=== PATIENT | male | born 1985 | race Caucasian/White ===

== ENCOUNTER 2018-09-28 13:52 | Emergency (ER) | payer BC ==
[2018-09-28 13:58] VITALS: BP 141/82; PULSE 69; RESP 18; TEMP 98.1
--- NOTE | 2018-09-28 15:24 | ED ---
Eye Problem HPI - General Chief complaint: Eye Problems Stated complaint: Eye Pain Time Seen by Provider: 09/28/18 14:18 Source: patient Mode of arrival: ambulatory Limitations: no limitations - History of Present Illness Initial comments: 33-year-old male presenting today for chief complaint of right eye pain. Patient states that he has had a red eye since Wednesday, he states he was evaluated by maria esther Cowan told that he had possible uveitis. Patient was started on antibiotic drops and told to follow-up ophthalmology. Patient missed ophthalmology appointment and presents emergency department for evaluation. Patient states he is sensitive to light. He states the redness has been the inciting. Patient denies any nausea or vomiting. Denies any headache denies any dizziness. Patient denies diplopia or visual loss. Patient denies any crusting or draining of the eye aside from watering 1 exposed to light. Patient denies any rashes or joint pain dyspnea or coughing. Remaining review of systems negative. - Related Data Previous Rx's Medication Instructions Recorded Prednisolone Acetate/Pf 1 drop LEFT EYE QID 5 Days #1 09/28/18 [Prednisolone Acet 1% Eye Drop] bottle Allergies Allergy/AdvReac Type Severity Reaction Status Date / Time No Known Allergies Allergy Verified 09/28/18 13:58 Review of Systems ROS Statement: Those systems with pertinent positive or pertinent negative responses have been documented in the HPI. ROS Other: All systems not noted in ROS Statement are negative. Past Medical History Past Medical History: No Reported History History of Any Multi-Drug Resistant Organisms: None Reported Additional Past Surgical History / Comment(s): jaw Past Psychological History: No Psychological Hx Reported Smoking Status: Never smoker Past Alcohol Use History: None Reported Past Drug Use History: None Reported General Exam - General Exam Comments Initial Comments: General: The patient is awake and alert, in no distress, and does not appear acutely ill. Eye: Visual acuity 20/20 OS, 20/25 OD. +3 mm pupils are equal, round and reactive to light, extra-ocular movements are intact. No APD. No nystagmus. There is undetectable injection near the limbus of the right eye. No conjunctival injection of the left eye. No cell and flare on slit lamp examination. Uptake on fluorescein examination. No foreign body. No signs of icterus. Ears, nose, mouth and throat: There are moist mucous membranes and no oral lesions. Neck: The neck is supple, there is no tenderness or JVD. Cardiovascular: There is a regular rate and rhythm. No murmur, rub or gallop is appreciated. Respiratory: Lungs are clear to auscultation, respirations are non-labored, breath sounds are equal. No wheezes, stridor, rales, or rhonchi. Gastrointestinal: Soft, non-distended, non-tender abdomen without masses or organomegaly noted. There is no rebound or guarding present. No CVA tenderness. Bowel sounds are unremarkable. Musculoskeletal: Normal ROM, no tenderness. Strength 5/5. Sensation intact. Pulses equal bilaterally 2+. Neurological: A&O x 3. CN II-XII intact, There are no obvious motor or sensory deficits. Coordination appears grossly intact. Speech is normal. Skin: Skin is warm and dry and no rashes or lesions are noted. Psychiatric: Cooperative, appropriate mood & affect, normal judgment. Limitations: no limitations Course Vital Signs 09/28/18 09/28/18 13:55 15:33 Temperature 98.1 F 98.1 F Pulse Rate 69 69 Respiratory 18 18 Rate Blood Pressure 141/82 141/82 O2 Sat by Pulse 99 99 Oximetry Medical Decision Making - Medical Decision Making 33-year-old male presenting for evaluation of red right eye. Patient is photophobic on examination. Normal pupil size. No cell and flare. No fluore scein uptake. 2024 OD, 2019 left. I contacted ophthalmology speaking with Dr. scott fajardo who recommended follow-up at 8 AM tomorrow morning. He recommended start patient on steroid drops. Patient states redness is improved since Wednesday. Patient appears well there is no signs of systemic infection. Lungs clear. At this time feel patient stay for discharge with outpatient ophthalmology and primary care follow-up for further evaluation of suspected iritis. I discussed case with [facility] provider Dr. Mcguire who is agreeable care plan and discharged. Return parameters were discussed at length with patient who verbalized understanding. Disposition Clinical Impression: Iritis Disposition: HOME SELF-CARE Condition: Good Instructions (If sedation given, give patient instructions): Iritis (ED) Additional Instructions: Please use medication as discussed. Please follow-up with ophthalmology at 8 AM tomorrow as discussed, please do not missed this appointment as it is important for close follow-up. Address is [address] [place] [address]. Please return to emergency room if the symptoms increase or worsen or for any other concerns. Prescriptions: Prednisolone Acetate/Pf [Prednisolone Acet 1% Eye Drop] 1 drop LEFT EYE QID 5 Days #1 bottle Is patient prescribed a controlled substance at d/c from ED?: No Referrals: None,Stated [Primary Care Provider] - 1-2 days Luh Lopez MD [STAFF PHYSICIAN] - 1-2 days Time of Disposition: 15:23
== END 2018-09-28 15:33 | disposition home or self-care (01) ==
LOC: EC 13:52
DX: H20.9 Unspecified iridocyclitis (principal); Z98.890 Other specified postprocedural states
CPT/HCPCS: 99283

== ENCOUNTER 2018-12-30 22:12 | Emergency (ER) | payer BC ==
[2018-12-30] MEDS ORDERED: SODIUM CHLORIDE 0.9% 1,000 ML IV STA (23:14)
[2018-12-30] MEDS ORDERED: ONDANSETRON 4 MG/2 ML VIAL IVP STA (23:14)
[2018-12-30] MEDS ORDERED: MORPHINE SULFATE 2 MG/ML SYRINGE IVP STA (23:14)
[2018-12-30 23:46] LABS: Basophils % (A) 0 %; Eosinophils # (A) 0.1 k/uL (0-0.7); Eosinophils % (A) 1 %; HGB 13.6 gm/dL (13.0-17.5); Lymphocytes # (A) 0.7 k/uL (1.0-4.8); Lymphocytes % (A) 7 %; MCH 29.4 pg (25.0-35.0); Mean Platelet Volume 7.4; Monocytes # (A) 0.5 k/uL (0-1.0); Monocytes % (A) 6 %; Neutrophils # (A) 7.9 k/uL (1.3-7.7); Neutrophils % (A) 85 %; Platelet Count 178 k/uL (150-450); RBC 4.61 m/uL (4.30-5.90); RDW 12.9 % (11.5-15.5); WBC 9.3 k/uL (3.8-10.6)
[2018-12-30 23:56] LABS: ALT 61 U/L (21-72); AST 70 U/L (17-59); African American GFR (CKD) >90 (>60 ml/min/1.73 sqM); Albumin 3.9 g/dL (3.5-5.0); Alkaline Phosphatase 97 U/L (38-126); Amylase 38 U/L (30-110); Anion Gap 10 mmol/L; Blood Urea Nitrogen 22 mg/dL (9-20); Calcium 8.4 mg/dL (8.4-10.2); Carbon Dioxide 24 mmol/L (22-30); Chloride 104 mmol/L (98-107); Glucose 84 mg/dL (74-99); Potassium 3.6 mmol/L (3.5-5.1); Sodium 138 mmol/L (137-145); Total Bilirubin 1.1 mg/dL (0.2-1.3); Total Protein 6.4 g/dL (6.3-8.2)
--- NOTE | 2018-12-31 00:20 | XR ---
EXAM: XR Abdomen, 1 View CLINICAL HISTORY: ITS.REASON XR Reason: abdominal pain TECHNIQUE: Frontal upright view of the abdomen/pelvis. COMPARISON: 06/17/14. FINDINGS: Gastrointestinal tract: Several air-fluid levels, can be seen with enteritis or ileus. Bones/joints: No visualized acute fracture. Vasculature: Pelvic calcific opacities again noted, potentially phleboliths with other etiologies not excluded. IMPRESSION: 1. Several air-fluid levels, can be seen with enteritis or ileus. 2. Pelvic calcific opacities again noted, potentially phleboliths with other etiologies not excluded.
[2018-12-31 00:37] VITALS: TEMP 98
[2018-12-31 00:49] LABS: Appearance,Urine Clear (Clear); Bilirubin,Urine Negative (Negative); Blood,Urine Negative (Negative); Color,Urine Light Yellow; Glucose,Urine (UA) Negative (Negative); Ketones,Urine 1+ (Negative); Leukocyte Esterase,Urine Negative (Negative); Nitrite,Urine Negative (Negative); PH, Urine 5.5 (5.0-8.0); Protein,Urine Negative (Negative); Specific Gravity,Urine 1.004 (1.001-1.035); Urobilinogen,Urine <2.0 mg/dL (<2.0)
--- NOTE | 2018-12-31 01:11 | ED ---
Abdominal Pain HPI - General Chief Complaint: Abdominal Pain Stated Complaint: Abdominal Pain Time Seen by Provider: 12/30/18 22:39 Source: patient, EMS Mode of arrival: EMS Limitations: no limitations - History of Present Illness Initial Comments: 33-year-old male patient presents to the emergency department today for evaluation of upper abdominal pain. Patient states that approximately one hour after eating dinner this evening around 6:30-7:00 he had immediate onset of midepigastric abdominal pain. Patient states it felt as though he had been "pu nched in the stomach". Patient states the pain did radiate through to his back. States he is not having some right side pain with this as well. States that he was nauseous but did not vomit. He denies any fever or chills. States his bowel movements have been normal. Denies any hematuria, dysuria, urinary frequency, urinary urgency. He denies any history of abdominal surgery. Patient states 2 days ago he was struck in the abdomen with a falling door. 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 States that his right lower abdomen has been tender but he denies any bruising to the area. Denies any hematuria with this. Patient denies any recent rash, shortness breath, chest pain, diarrhea, constipation, back pain, numbness, tingling, dizziness, weakness, headache, visual changes, or any other complaints. - Related Data Previous Rx's Medication Instructions Recorded Prednisolone Acetate/Pf 1 drop LEFT EYE QID 5 Days #1 09/28/18 [Prednisolone Acet 1% Eye Drop] bottle Allergies Allergy/AdvReac Type Severity Reaction Status Date / Time No Known Allergies Allergy Verified 12/30/18 22:38 Review of Systems ROS Statement: Those systems with pertinent positive or pertinent negative responses have been documented in the HPI. ROS Other: All systems not noted in ROS Statement are negative. Past Medical History Past Medical History: No Reported History History of Any Multi-Drug Resistant Organisms: None Reported Additional Past Surgical History / Comment(s): jaw 2003 Past Psychological History: No Psychological Hx Reported Smoking Status: Never smoker Past Alcohol Use History: None Reported Past Drug Use History: None Reported General Exam Limitations: no limitations General appearance: alert, in no apparent distress, other (Physical well- developed, well-nourished adult male patient in no acute distress. Vital signs upon presentation are temperature 97.6F, pulse 79, respirations 18, blood pressure 125/85, pulse ox 100% on room air.) Eye exam: Present: normal appearance, PERRL, EOMI. Absent: scleral icterus, conjunctival injection, periorbital swelling ENT exam: Present: normal exam, normal oropharynx, mucous membranes moist Respiratory exam: Present: normal lung sounds bilaterally. Absent: respiratory distress, wheezes, rales, rhonchi, stridor Cardiovascular Exam: Present: regular rate, normal rhythm, normal heart sounds. Absent: systolic murmur, diastolic murmur, rubs, gallop, clicks GI/Abdominal exam: Present: soft, tenderness (Midepigastric and right upper quadrant), normal bowel sounds. Absent: distended, guarding, rebound, rigid Neurological exam: Present: alert, oriented X3, CN II-XII intact Psychiatric exam: Present: normal affect, normal mood Skin exam: Present: warm, dry, intact, normal color. Absent: rash Course Vital Signs 12/30/18 12/31/18 12/31/18 22:32 00:36 01:50 Temperature 97.6 F 98 F Pulse Rate 79 78 69 Respiratory 18 19 18 Rate Blood Pressure 125/85 110/61 110/62 O2 Sat by Pulse 100 97 96 Oximetry 12/31/18 03:05 Temperature 98 F Pulse Rate 60 Respiratory 16 Rate Blood Pressure 105/62 O2 Sat by Pulse 97 Oximetry Medical Decision Making - Medical Decision Making 33-year-old male patient presented to the emergency department today for evaluation of abrupt onset abdominal pain. Physical examination did reveal some midepigastric tenderness. Labs reviewed and were unremarkable. X-ray was obtained and showed evidence for fluid filled small bowel loops consistent with enteritis or ileus. Patient did have abdominal trauma a few days ago so CT of the abdomen and pelvis with contrast was obtained, showed fluid filled small bowel and large bowel consistent with diarrheal disease. I did discuss signs and results with the patient. He is instructed to expect diarrhea possibly. He is instructed to follow-up with his primary care physician for recheck in 1-2 days. Return parameters were discussed in detail. He verbalizes understanding and agrees with this plan. - Lab Data Result diagrams: 12/30/18 22:30 12/30/18 22:30 Lab Results 12/30/18 12/30/18 12/31/18 Range/Units 22:30 22:30 00:34 WBC 9.3 (3.8-10.6) k/uL RBC 4.61 (4.30-5.90) m/uL Hgb 13.6 (13.0-17.5) gm/dL Hct 41.0 (39.0-53.0) % MCV 89.0 (80.0-100.0) fL MCH 29.4 (25.0-35.0) pg MCHC 33.0 (31.0-37.0) g/dL RDW 12.9 (11.5-15.5) % Plt Count 178 (150-450) k/uL Neutrophils % 85 % Lymphocytes % 7 % Monocytes % 6 % Eosinophils % 1 % Basophils % 0 % Neutrophils # 7.9 H (1.3-7.7) k/uL Lymphocytes # 0.7 L (1.0-4.8) k/uL Monocytes # 0.5 (0-1.0) k/uL Eosinophils # 0.1 (0-0.7) k/uL Basophils # 0.0 (0-0.2) k/uL Sodium 138 (137-145) mmol/L Potassium 3.6 (3.5-5.1) mmol/L Chloride 104 (98-107) mmol/L Carbon Dioxide 24 (22-30) mmol/L Anion Gap 10 mmol/L BUN 22 H (9-20) mg/dL Creatinine 1.11 (0.66-1.25) mg/dL Est GFR (CKD-EPI)AfAm >90 (>60 ml/min/1.73 sqM) Est GFR (CKD-EPI)NonAf 86 (>60 ml/min/1.73 sqM) Glucose 84 (74-99) mg/dL Calcium 8.4 (8.4-10.2) mg/dL Total Bilirubin 1.1 (0.2-1.3) mg/dL AST 70 H (17-59) U/L ALT 61 (21-72) U/L Alkaline Phosphatase 97 (38-126) U/L Total Protein 6.4 (6.3-8.2) g/dL Albumin 3.9 (3.5-5.0) g/dL Amylase 38 (30-110) U/L Lipase 82 (23-300) U/L Urine Color Light Yellow Urine Appearance Clear (Clear) Urine pH 5.5 (5.0-8.0) Ur Specific Organ 1.004 (1.001-1.035) Urine Protein Negative (Negative) Urine Glucose (UA) Negative (Negative) Urine Ketones 1+ H (Negative) Urine Blood Negative (Negative) Urine Nitrite Negative (Negative) Urine Bilirubin Negative (Negative) Urine Urobilinogen <2.0 (<2.0) mg/dL Ur Leukocyte Esterase Negative (Negative) - Radiology Data Radiology results: report reviewed, image reviewed CT abdomen and pelvis with contrast was obtained. Report was reviewed in its entirety. Impression by Dr. Diamond shows fluid in the small and large bowel, can be seen with enteritis or diarrheal disease. One view x-ray of the abdomen is obtained. Report was reviewed in its entirety. Impression by Dr. Diamond shows several air-fluid levels, can be seen with enteritis or ileus. Pelvic calcific opacities again noted, potentially phleboliths with other etiologies of excluded. Disposition Clinical Impression: Abdominal pain Disposition: HOME SELF-CARE Condition: Good Instructions (If sedation given, give patient instructions): Abdominal Pain (ED), Ileus (ED) Additional Instructions: Start with clear liquid diet and advance as tolerated. Follow-up with your primary care physician for recheck in 1-2 days. Return to the emergency department immediately for any new, worsening, or concerning symptoms. Is patient prescribed a controlled substance at d/c from ED?: No Referrals: None,Stated [Primary Care Provider] - 1-2 days Time of Disposition: 02:44
--- NOTE | 2018-12-31 02:34 | CT ---
EXAM: CT Abdomen and Pelvis With Intravenous Contrast CLINICAL HISTORY: ITS.REASON CT Reason: Pain/right sided abd trauma 2 days ago TECHNIQUE: Axial computed tomography images of the abdomen and pelvis with intravenous contrast. CTDI is 8.6 mGy and DLP is 818.3 mGy-cm. This CT exam was performed using one or more of the following dose reduction techniques: automated exposure control, adjustment of the mA and/or kV according to patient size, and/or use of iterative reconstruction technique. COMPARISON: No relevant prior studies available. FINDINGS: Lung bases: No acute findings. ABDOMEN: Liver: Small hepatic hypodensities. Gallbladder and bile ducts: Unremarkable. Pancreas: Unremarkable. Spleen: Mild splenomegaly. Adrenals: Unremarkable. Kidneys and ureters: No hydronephrosis. Stomach and bowel: Fluid in the small and large bowel, can be seen with enteritis or diarrheal disease. Areas of mild bowel wall thickening or underdistention. No evidence of bowel obstruction. PELVIS: Appendix: Upper normal caliber appendix. No significant periappendiceal inflammatory changes. Bladder: Minimal bladder wall thickening. Reproductive: Unremarkable as visualized. ABDOMEN and PELVIS: Intraperitoneal space: No free air. No significant fluid collection. Bones/joints: Lucent focus in the right ilium. No evidence of acute fracture. Soft tissues: Small fat-containing umbilical hernia. Vasculature: Unremarkable. Lymph nodes: Small nonspecific mesenteric and retroperitoneal lymph nodes. IMPRESSION: Fluid in the small and large bowel, can be seen with enteritis or diarrheal disease.
[2018-12-31 03:06] VITALS: BP 105/62; PULSE 60; RESP 16
== END 2018-12-31 03:07 | disposition home or self-care (01) ==
LOC: EC 22:12
DX: R10.13 Epigastric pain (principal); R11.0 Nausea; M54.9 Dorsalgia, unspecified; Z87.828 Personal history of other (healed) physical injury and trauma
CPT/HCPCS: 36415; 80053; 82150; 83690; 85025; 81003; 74018; 74177; 99285; 96374; 96375; 96361; J2405; J2270; Q9967

== ENCOUNTER 2021-01-01 07:42 | Emergency (ER) | payer BC, OTHER ==
[2021-01-01 07:48] VITALS: BP 141/87; PULSE 117; RESP 18; TEMP 98
[2021-01-01] MEDS ORDERED: LIDOCAINE 1% INJ 10MG/ML (20 ML MDV) SQ ONE (07:52)
[2021-01-01] MEDS ORDERED: DIPH,PERTUS(ACELL)TETVAC-LF 0.5 ML VIAL IM ONE (07:52)
[2021-01-01] MEDS ORDERED: BACITRACIN OINT 1 EACH PACKET TOPICAL ONE (07:53)
--- NOTE | 2021-01-01 08:21 | ED ---
Wound/Laceration HPI - General Chief Complaint: Wound/Laceration Stated Complaint: IHS Lt Finger Lac Time Seen by Provider: 01/01/21 07:49 Source: patient Mode of arrival: ambulatory Limitations: no limitations - History of Present Illness Initial Comments: Patient is a 35-year-old male presenting to the emergency Department with complaints of a laceration to his left index finger. He states at work today, he was helping lift a window sill when it slipped and sliced his finger. Bleeding is controlled with a bandage. He is not on blood thinners. His tetanus vaccine is not up-to-date. He has no further complaints today. - Related Data Previous Rx's Medication Instructions Recorded Prednisolone Acetate/Pf 1 drop LEFT EYE QID 5 Days #1 09/28/18 [Prednisolone Acet 1% Eye Drop] bottle Allergies Allergy/AdvReac Type Severity Reaction Status Date / Time No Known Allergies Allergy Verified 12/30/18 22:38 Review of Systems ROS Statement: Those systems with pertinent positive or pertinent negative responses have been documented in the HPI. ROS Other: All systems not noted in ROS Statement are negative. Past Medical History Past Medical History: No Reported History History of Any Multi-Drug Resistant Organisms: None Reported Additional Past Surgical History / Comment(s): jaw 2003 Past Psychological History: No Psychological Hx Reported Smoking Status: Never smoker Past Alcohol Use History: None Reported Past Drug Use History: None Reported General Exam - General Exam Comments Initial Comments: GENERAL: Patient is well-developed and well-nourished. Patient is nontoxic and in no acute distress. HEAD: Atraumatic, normocephalic. EYES: Pupils equal round and reactive to light, extraocular movements intact, sclera anicteric, conjunctiva are normal. Eyelids were unremarkable. LUNGS: Unlabored respirations. Breath sounds clear to auscultation bilaterally and eq ual. No wheezes rales or rhonchi. HEART: Regular rate and rhythm without murmurs, rubs or gallops. MUSCULOSKELETAL: Patient has full flexion and extension of his left index finger. He is neurovascular intact. No clubbing or cyanosis. NEUROLOGICAL: Patient is alert and oriented x 3. PSYCH: Normal mood, normal affect. SKIN: Warm, Dry, normal turgor, no rashes. Patient has a 1.5 cm else shaped laceration to the distal end of his left index finger, palmar aspect. Bleeding is controlled. Limitations: no limitations Course Vital Signs 01/01/21 07:45 Temperature 98 F Pulse Rate 117 H Respiratory 18 Rate Blood Pressure 141/87 O2 Sat by Pulse 97 Oximetry Procedures - Laceration Laceration #1 Consent Obtained: verbal consent Indication: laceration Site: hand (Left index finger, distal end, palmar aspect) Size (cm): 0 (1.5cm) Description: flap (L-shaped) Depth: simple, single layer Anesthetic Used: lidocaine 1% Anesthesia Technique: local infiltration Amount (mls): 3 Pre-repair: irrigated extensively Type of Sutures: nylon Size of Sutures: 5-0 Number of Sutures: 5 Technique: simple, interrupted Patient Tolerated Procedure: well Medical Decision Making - Medical Decision Making Patient is a 35-year-old male here with an 1.5 cm L-shaped laceration to his left index finger, distal and palmar aspect. He did this while at work today. We did update his tetanus vaccine today. Patient's wound was cleaned, closed with 5, 5-0 sutures. Tolerated procedure well. He is stable to return to work. Stable for discharge. Disposition Clinical Impression: Laceration of left index finger Disposition: HOME SELF-CARE Condition: Stable Instructions (If sedation given, give patient instructions): Care For Your Stitches (ED) Additional Instructions: Please return to the Emergency Department if symptoms worsen or any other concerns. Please keep wound clean and dry. Stitches need to be removed in 7-10 days. Keep covered while at work. Is patient prescribed a controlled substance at d/c from ED?: No Referrals: None,Stated [Primary Care Provider] - 1-2 days Time of Disposition: 08:20
== END 2021-01-01 08:35 | disposition home or self-care (01) ==
LOC: EC 07:42
DX: S61.211A Laceration without foreign body of left index finger without damage to nail, initial encounter (principal); W26.8XXA Contact with other sharp object(s), not elsewhere classified, initial encounter; Y99.0 Civilian activity done for income or pay; Z79.52 Long term (current) use of systemic steroids
CPT/HCPCS: 12001; 90715; 99282